=== PATIENT | male | born 1995 | race Caucasian/White ===

== ENCOUNTER 2022-10-02 16:43 | Emergency (ER) | payer MEDICAID, OTHER ==
[2022-10-02] MEDS ORDERED: Diphtheria,Pertussis(Acell),Tetanus Vaccine 0.5 ML Syringe IM ONE (16:59)
[2022-10-02] MEDS ORDERED: Lidocaine 1% PF 2 ML SDV INJECT ONE (16:59)
[2022-10-02] MEDS ORDERED: Bacitracin Oint 1 GM U/D Packet TOP ONE (16:59)
== END 2022-10-02 20:00 | disposition home or self-care (01) ==
LOC: MW.ED 16:43
DX: S01.01XA Laceration without foreign body of scalp, initial encounter (principal); M54.2 Cervicalgia; W22.8XXA Striking against or struck by other objects, initial encounter
CPT/HCPCS: 70450; 70450-26; 72125; 72125-26; 99283